=== PATIENT | female | born 1945 | race Caucasian/White ===

== ENCOUNTER 2017-08-19 10:50 | Outpatient (CLI) | payer MEDICARE ==
--- NOTE | 2017-08-19 13:44 | MMO ---
BILATERAL MAMMOGRAMS: History: Screening mammography. Comparison: 04-14-14, 06-30-16 FINDINGS: Scattered fibroglandular densities are again demonstrated. There is no dominant mass or suspicious c alcifications. This study is interpreted with the assistance of computer aided detection. IMPRESSION: BIRADS category 1 - negative. Suggest routine follow up. POS: [facility]
== END 2017-08-19 10:51 | disposition home or self-care (01) ==
LOC: SCSMAMMO 10:50
PROVIDERS: ATTEND Family Medicine Addiction Medicine
DX: Z12.31 Encounter for screening mammogram for malignant neoplasm of breast (principal)
CPT/HCPCS: 77067; G0202